=== PATIENT | male | born 1980 | race Two or more races ===

== ENCOUNTER 2018-12-03 05:52 | Emergency (ER) | payer BC ==
--- NOTE | 2018-12-03 06:20 | EDM.PDOC ---
<Santi Blackmon - Last Filed: 12/03/18 06:18> ED HPI GENERAL MEDICAL PROBLEM - General Chief Complaint: General Stated Complaint: PAIN IN LEFT ARM Time Seen by Provider: 12/03/18 06:18 Source of Information: Reports: Patient - History of Present Illness INITIAL COMMENTS - FREE TEXT/NARRATIVE: HISTORY AND PHYSICAL: History of present illness: []Patient presents with pain in left arm he rates 3 out of 10 that awoke him from sleep no fever nausea vomiting diarrhea constipation chest pain shortness breath headache dizziness palpitation no bowel or urine symptoms Denies injury or trauma Review of systems: As per history of present illness and below otherwise all systems reviewed and negative. Past medical history: As per history of present illness and as reviewed below otherwise noncontributory. Surgical history: As per history of present illness and as reviewed below otherwise noncontributory. Social history: No reported history of drug or alcohol abuse. Family history: As per history of present illness and as reviewed below otherwise noncontributory. Physical exam: HEENT: Atraumatic, normocephalic, pupils reactive, negative for conjunctival pallor or scleral icterus, mucous membranes moist, throat clear, neck supple, nontender, trachea midline. Lungs: Clear to auscultation, breath sounds equal bilaterally, chest nontender. Heart: S1S2, regular, negative for clicks, rubs, or JVD. Abdomen: Soft, nondistended, nontender. Negative for masses or hepatosplenomegaly. Negative for costovertebral tenderness. Pelvis: Stable nontender. Genitourinary: Deferred. Rectal: Deferred. Extremities: Atraumatic, negative for cords or calf pain. Neurovascular unremarkable. Neuro: Awake, alert, oriented. Cranial nerves II through XII unremarkable. Cerebellum unremarkable. Motor and sensory unremarkable throughout. Exam nonfocal. Diagnostics: [EKG Venous Doppler left upper extremity ] cBC INR troponin Therapeutics: [] Impression: [Left arm pain ] Definitive disposition and diagnosis as appropriate pending reevaluation and review of above. left arm Pain Score (Numeric/FACES): 6 - Related Data Allergies Allergy/AdvReac Type Severity Reaction Status Date / Time No Known Allergies Allergy Verified 12/03/18 05:57 Home Meds: Home Meds . [No Known Home Meds] 10/21/15 [History] Past Medical History - Past Health History Medical/Surgical History: Denies Medical/Surgical History Cardiovascular History: Reports: None Respiratory History: Reports: None Gastrointestinal History: Reports: None Genitourinary History: Reports: None Other Musculoskeletal History: left ankle surgery Neurological History: Reports: None Psychiatric History: Reports: None Endocrine/Metabolic History: Reports: None Hematologic History: Reports: None Dermatologic History: Reports: None - Infectious Disease History Infectious Disease History: Reports: Chicken Pox Social & Family History - Tobacco Use Smoking Status *Q: Never Smoker - Recreational Drug Use Recreational Drug Use: No Course - Vital Signs Last Recorded V/S: Last Vital Signs Temp 35.9 C 12/03/18 07:40 Pulse 57 L 12/03/18 07:40 Resp 16 12/03/18 07:40 BP 128/77 12/03/18 07:40 Pulse Ox 96 12/03/18 07:40 - Orders/Labs/Meds Orders: Active Orders 24 hr Category Date Time Status EKG Documentation Completion [RC] STAT Care 12/03/18 06:13 Active Labs: Laboratory Tests 12/03/18 12/03/18 12/03/18 Range/Units 08:00 08:00 08:00 WBC 7.23 (4.0-11.0) K/uL RBC 5.67 (4.50-5.90) M/uL Hgb 16.7 (13.0-17.0) g/dL Hct 47.9 (38.0-50.0) % MCV 84.5 (80.0-98.0) fL MCH 29.5 (27.0-32.0) pg MCHC 34.9 (31.0-37.0) g/dL RDW Std Deviation 37.2 (28.0-62.0) fl RDW Coeff of Cole 12 (11.0-15.0) % Plt Count 247 (150-400) K/uL MPV 9.90 (7.40-12.00) fL Neut % (Auto) 43.9 L (48.0-80.0) % Lymph % (Auto) 29.3 (16.0-40.0) % [place] % (Auto) 8.6 (0.0-15.0) % Eos % (Auto) 17.4 H (0.0-7.0) % Baso % (Auto) 0.8 (0.0-1.5) % Neut # (Auto) 3.2 (1.4-5.7) K/uL Lymph # (Auto) 2.1 (0.6-2.4) K/uL [place] # (Auto) 0.6 (0.0-0.8) K/uL Eos # (Auto) 1.3 H (0.0-0.7) K/uL Baso # (Auto) 0.1 (0.0-0.1) K/uL Nucleated RBC % 0.0 /100WBC Nucleated RBCs # 0 K/uL INR 1.04 Troponin I < 0.050 (0.000-0.056) ng/mL Departure - Departure Disposition: Home, Self-Care 01 Clinical Impression: Encounter for medical screening examination, Upper extremity pain - Discharge Information Referrals: PCP,None [Primary Care Provider] - Forms: ED Department Discharge Additional Instructions: The following information is given to patients seen in the emergency department who are being discharged to home. This information is to outline your options for follow-up care. We provide all patients seen in our emergency department with a follow-up referral. The need for follow-up, as well as the timing and circumstances, are variable depending upon the specifics of your emergency department visit. If you don't have a primary care physician on staff, we will provide you with a referral. We always advise you to contact your personal physician following an emergency department visit to inform them of the circumstance of the visit and for follow-up with them and/or the need for any referrals to a consulting specialist. The emergency department will also refer you to a specialist when appropriate. This referral assures that you have the opportunity for followup care with a specialist. All of these measure are taken in an effort to provide you with optimal care, which includes your followup. Under all circumstances we always encourage you to contact your private physician who remains a resource for coordinating your care. When calling for followup care, please make the office aware that this follow-up is from your recent emergency room visit. If for any reason you are refused follow-up, please contact the [facility] emergency department at and asked to speak to the emergency department charge nurse. Follow-up primary medical doctor return as needed as discussed <Abdi Florez - Last Filed: 12/03/18 08:47> ED ROS GENERAL - Review of Systems Review Of Systems: ROS reveals no pertinent complaints other than HPI. ED EXAM, GENERAL - Physical Exam Exam: See Below (See dictation) Course - Vital Signs Text/Narrative:: Patient's emergency room course has been unremarkable venous Doppler of his left upper extremity and diagnostics were negative Departure - Departure Time of Disposition: 08:46 Condition: Good
--- NOTE | 2018-12-03 08:26 | US ---
Indication: Left arm tingling and numbness. Technique: 2D grayscale, color Doppler and spectral Doppler imaging was performed of the left upper extremity. Findings: Sonographic imaging demonstrates normal color Doppler and spectral Doppler venous blood flow within the left internal jugular,innominate and subclavian veins. There is normal compressibility and color Doppler venous blood flow within the axillary, cephalic,basilic and both brachial veins. Limited imaging of the contralateral neck reveals normal venous blood flow within the right internal jugular vein. Impression: No evidence of venous thrombosis within the left upper extremity. Dictated by Abdi Rubio MD @ Dec 03 2018 8:22AM Signed by Dr. Abdi Rubio @ Dec 03 2018 8:24AM
[2018-12-03 09:29] VITALS: BP 121/80
== END 2018-12-03 09:00 | disposition home or self-care (01) ==
LOC: MW.ED 05:52
DX: M79.602 Pain in left arm (principal)
CPT/HCPCS: 36415; 84484; 85025; 85610; 93005; 93971-26-LT; 93971-LT; 99283; 99284-25